=== PATIENT | male | born 1950 | race Caucasian/White ===

== ENCOUNTER 2018-07-03 12:51 | Emergency (ER) | payer MEDICARE, OTHER, SELFPAY ==
[2018-07-03 12:59] VITALS: BP 180/97; PULSE 83; RESP 16; TEMP 37.1; O2SAT 98
--- NOTE | 2018-07-03 14:02 | ED.GENADUL_ITS ---
Discharge Plan Disposition Patient Disposition: HOME Condition: Good Discharge Details Chief Complaint: Epistaxis Clinical Impression: Epistaxis Primary Care Provider: Aden Padilla ED Provider: Darwin Fernandez Home Meds and New Rx's Prescriptions: No Action No Known Home Meds RF: 0 Discharge Instructions Instructions: Nosebleed (ED) Referrals: [facility] Emergency Dept. [Outside] - Return if symptoms worsen Discharge Data Discharge Date/Time-TO BE ENTERED AT DEPARTURE: 07/03/18 14:20 Medical Decision Making Bleeding stopped prior to interview and exam. I did use hurricane spray for comfort during the exam. I could not see source of bleeding. Provide nasal clamp if it starts again. Advised to return if unable stop. Advised to establish PCP. Offered to evaluate LFT with labs today and pt declined and preferred to wait to discuss with a pcp. I am agreeable. Advised to return if worsens. HPI General Mode of arrival: ambulatory . Date/Time Provider Initiated Documentation: 07/03/18 12:59 . Limitations to Documentation: no limitations . Information obtained by: patient . HPI Narrative: 68 y/o male here with c/o nose bleed. Started intermittently two weeks ago. Normally it stops after a couple minutes of applying pressure. Today it would not stop. He does not take ASA or anticoagulants. He does apply ointment to his nostrils for dry skin. He drinks daily and has for years. He works with [employer] by trade and figures he would have problems at some point. Denies any trauma. Believes today the blood started after forceful sneeze. He does not have PCP established yet. He and his have plans to get one by August. No history of nose bleeds until two weeks ago and denies any other bleeding. Related Data Home Medications Medication Instructions Recorded Confirmed Unknown [No Known Home Meds] 07/03/18 07/03/18 Allergies Allergy/AdvReac Type Severity Reaction Status Date / Time No Known Allergies Allergy Unverified 07/03/18 13:06 General Stated Complaint: Epistaxis HODAN: 4 Review of Systems Eyes Reports system reviewed and no additional complaints, except as docu ENT Denies bleeding gums and Reports epistaxis Cardiovascular Reports system reviewed and no additional complaints, except as docu Respiratory Reports system reviewed and no additional complaints, except as docu Gastrointestinal Reports system reviewed and no additional complaints, except as docu Genitourinary Reports system reviewed and no additional complaints, except as [facility] Integumentary/Breasts Reports system reviewed and no additional complaints, except as [facility] Hematologic/Lymphatic Reports system reviewed and no additional complaints, except as [facility] (denies any hepatitis) [facility] Social History Smoking/Tobacco Use Status: Never Exam Const General: cooperative, healthy appearing, comfortable and no acute distress Nutritional Appearance: average body habitus Orientation: alert, awake and oriented x3 HENMT Head: normal to inspection and atraumatic Ears: hearing grossly normal bilaterally and external ears normal General nose exam: external nose normal, nares normal, nasal mucous membranes and turbinates normal, no nasal discharge, epistaxis (left resolved. Dried blood on external nose but nose active bleeding and no fissures or cracks.) and nasal polyp on the left (inner wall) Face and sinus: normal facial exam Mouth: oral mucosae normal Eyes General: appearance normal, both eyes and all related structures Neck Neck: normal visual inspection, full ROM and no lymphadenopathy Resp Effort & Inspection: normal respiratory effort and able to speak in complete sentences Auscultation: clear to auscultation bilaterally Cardio Rate: regular rate Rhythm: regular rhythm Skin General skin exam: no rashes or lesions noted Neuro General: alert, awake, oriented x3 and gait normal Course Vital Signs Temperature 37.1 C 07/03/18 12:59 Pulse 83 07/03/18 12:59 Respiratory Rate 16 07/03/18 12:59 Blood Pressure 180/97 H 07/03/18 12:59 Pulse Oximetry 98 07/03/18 12:59 Temperature 37.1 C 07/03/18 12:59 Temperature Source Skin 07/03/18 12:59 Pulse 83 07/03/18 12:59 Respiratory Rate 16 07/03/18 12:59 Respiratory Effort 07/03/18 13:04 Blood Pressure 180/97 H 07/03/18 12:59 Pulse Oximetry 98 07/03/18 12:59 Oxygen Delivery Method Room Air 07/03/18 12:59 Oxygen Flow Rate 0 07/03/18 12:59
== END 2018-07-03 14:20 | disposition home or self-care (01) ==
PROVIDERS: Emergency Provider Nurse Practitioner Family; PCP Family Medicine
DX: R04.0 Epistaxis (principal)
CPT/HCPCS: 99282

== ENCOUNTER 2018-10-02 17:32 | Outpatient (REF) | payer MEDICARE, OTHER, SELFPAY ==
[2018-10-02 21:59] LABS: ALT 48 U/L (12-78); AST 31 U/L (15-37); Alkaline Phosphatase 93 U/L (46-116); Anion Gap 11.2 mmol/L (3-11); BUN 11 mg/dL (7-18); Bilirubin, Total 0.6 mg/dL (0.2-1.0); CO2 24.8 mmol/L (21.0-32.0); CREATININE 0.87 mg/dL (0.70-1.30); Calcium 9.7 mg/dL (8.5-10.1); Chloride 99 mmol/L (98-107); Cholesterol 262 mg/dL (50-200); Glucose 99 mg/dL (70-100); HDL Cholesterol 45 mg/dL (40-60); LDL CHOLESTEROL 187 mg/dL (<100); Potassium 4.4 mmol/L (3.5-5.1); Sodium 135 mmol/L (136-145); Total Protein 8.1 g/dL (6.4-8.2); Triglyceride 151 mg/dL (30-150)
== END 2018-10-02 17:52 ==
LOC: NCHCN 17:32
PROVIDERS: PCP Family Medicine; Visit Provider Family Medicine
DX: E78.89 Other lipoprotein metabolism disorders (principal); R35.1 Nocturia
CPT/HCPCS: 80053; 80061; 83721

== ENCOUNTER 2018-10-29 12:26 | Outpatient (REF) | payer MEDICARE, OTHER, SELFPAY ==
[2018-10-29 21:43] LABS: Cholesterol 302 mg/dL (50-200); HDL Cholesterol 43 mg/dL (40-60); LDL CHOLESTEROL 190 mg/dL (<100); Triglyceride 278 mg/dL (30-150)
== END 2018-10-29 12:46 ==
LOC: NCHCN 12:26
PROVIDERS: PCP Family Medicine; Visit Provider Internal Medicine
DX: E78.5 Hyperlipidemia, unspecified (principal)
CPT/HCPCS: 80061; 83721

== ENCOUNTER 2021-06-07 18:46 | Outpatient (REF) | payer MEDICARE, OTHER, SELFPAY ==
[2021-06-07 18:44] LABS: ALT 101 U/L (16-63); AST 55 U/L (15-37); Alkaline Phosphatase 92 U/L (46-116); Anion Gap 7.1 mmol/L (3-11); BUN 11 mg/dL (7-18); Bilirubin, Total 0.7 mg/dL (0.2-1.0); CO2 28.9 mmol/L (21.0-32.0); Calculated LDL 182 mg/dL (<100); Chloride 101 mmol/L (98-107); Cholesterol 257 mg/dL (<200); Glucose 103 mg/dL (74-106); HDL Cholesterol 43 mg/dL (40-60); Potassium 4.3 mmol/L (3.5-5.1); Sodium 137 mmol/L (136-145); Total Protein 7.8 g/dL (6.4-8.2); Triglyceride 162 mg/dL (<150)
== END 2021-06-07 18:47 | disposition home or self-care (01) ==
LOC: NCHCN 18:46
PROVIDERS: PCP Family Medicine; Visit Provider Family Medicine
DX: I10 Essential (primary) hypertension (principal); E78.5 Hyperlipidemia, unspecified; Z00.00 Encounter for general adult medical examination without abnormal findings; Z72.89 Other problems related to lifestyle
CPT/HCPCS: 80053; 80061

== ENCOUNTER 2021-08-10 17:43 | Outpatient (REF) | payer MEDICARE, OTHER, SELFPAY ==
[2021-08-10 17:31] LABS: ALT 42 U/L (16-63); AST 32 U/L (15-37); Albumin 4.2 g/dL (3.4-5.0); Alkaline Phosphatase 89 U/L (46-116); Bilirubin, Total 0.7 mg/dL (0.2-1.0); Calculated LDL 164 mg/dL (<100); Cholesterol 242 mg/dL (<200); HDL Cholesterol 47 mg/dL (40-60); Total Protein 7.8 g/dL (6.4-8.2); Triglyceride 155 mg/dL (<150)
[2021-08-10 17:42] LABS: Bilirubin, Direct 0.2 mg/dL (0.0-0.2)
[2021-08-10 18:05] LABS: Hemoglobin A1C 5.8 % (<5.7)
== END 2021-08-10 17:44 | disposition home or self-care (01) ==
LOC: NCHCN 17:43
PROVIDERS: PCP Family Medicine; Visit Provider Family Medicine
DX: E78.5 Hyperlipidemia, unspecified (principal); Z72.89 Other problems related to lifestyle
CPT/HCPCS: 80061; 80076; 83036

== ENCOUNTER 2022-08-14 13:57 | Outpatient (REF) | payer MEDICARE, OTHER, SELFPAY ==
[2022-08-14 16:15] LABS: ALT 34 U/L (16-63); AST 32 U/L (15-37); Albumin 4.1 g/dL (3.4-5.0); Alkaline Phosphatase 87 U/L (46-116); Anion Gap 8.9 mmol/L (3-11); BUN 13 mg/dL (7-18); Bilirubin, Total 0.7 mg/dL (0.2-1.0); CO2 26.1 mmol/L (21.0-32.0); Calcium 9.2 mg/dL (8.5-10.1); Chloride 100 mmol/L (98-107); Estimated GFR 79.97 (mL/min/1.73m2); Glucose 112 mg/dL (74-106); Potassium 4.2 mmol/L (3.5-5.1); Sodium 135 mmol/L (136-145); Total Protein 8.5 g/dL (6.4-8.2)
[2022-08-14 16:23] LABS: Hemoglobin A1C 5.7 % (<5.7)
== END 2022-08-14 13:58 | disposition home or self-care (01) ==
LOC: NCHCN 13:57
PROVIDERS: PCP Family Medicine; Visit Provider Family Medicine
DX: R73.09 Other abnormal glucose (principal); I10 Essential (primary) hypertension; Z13.1 Encounter for screening for diabetes mellitus; Z72.89 Other problems related to lifestyle; E78.5 Hyperlipidemia, unspecified
CPT/HCPCS: 80053; 83036

== ENCOUNTER 2023-08-22 14:27 | Outpatient (REF) | payer MEDICARE, OTHER, SELFPAY ==
[2023-08-22 15:56] LABS: Hemoglobin A1C 5.7 % (<5.7)
[2023-08-22 16:03] LABS: ALT 38 U/L (16-63); AST 27 U/L (15-37); Albumin 3.9 g/dL (3.4-5.0); Alkaline Phosphatase 76 U/L (46-116); Anion Gap 7.6 mmol/L (3-11); BUN 12 mg/dL (7-18); Bilirubin, Total 0.5 mg/dL (0.2-1.0); CO2 26.4 mmol/L (21.0-32.0); Calcium 9.4 mg/dL (8.5-10.1); Calculated LDL 154 mg/dL (<100); Chloride 103 mmol/L (98-107); Cholesterol 242 mg/dL (<200); Estimated GFR 79.47 (mL/min/1.73m2); Glucose 110 mg/dL (74-106); HDL Cholesterol 43 mg/dL (40-60); Potassium 4.2 mmol/L (3.5-5.1); Sodium 137 mmol/L (136-145); Triglyceride 227 mg/dL (<150)
== END 2023-08-22 14:28 | disposition home or self-care (01) ==
LOC: NCHCN 14:27
PROVIDERS: PCP Family Medicine; Visit Provider Family Medicine
DX: R73.03 Prediabetes (principal); E78.5 Hyperlipidemia, unspecified
CPT/HCPCS: 80053; 80061; 83036

== ENCOUNTER 2024-09-04 14:00 | Outpatient (REF) | payer MEDICARE, OTHER, SELFPAY ==
[2024-09-04 14:59] LABS: Absolute Basophil Count 0.04 10^3/uL (0.0-0.2); Absolute Eosinophil Count 0.13 10^3/uL (0.0-0.7); Absolute Lymphocyte Count 1.47 10^3/uL (1.2-3.4); Absolute Monocyte Count 0.52 10^3/uL (0.1-0.8); Absolute Neutrophil Count 2.63 10^3/uL (1.2-6.7); Basophils % 0.8 %; Eosinophils % 2.7 %; HGB 16.1 g/dL (13.5-17.5); Lymphocytes % 30.7 %; MCH 31.8 pg (27.0-33.0); MCHC 33.5 % (32.0-36.0); MCV 95 fL (80-95); Monocytes % 10.9 %; Neutrophils % 54.9 %; Platelet Count 236 10^3/uL (130-400); RBC 5.06 10^6/uL (4.36-5.78); RDW 12.5 % (11.8-14.1); RDW-SD 43.3 fL; WBC 4.79 10^3/uL (4.4-10.8)
[2024-09-04 15:11] LABS: Hemoglobin A1C 5.9 % (<5.7)
[2024-09-04 15:27] LABS: ALT 35 U/L (16-63); AST 35 U/L (15-37); Albumin 4.3 g/dL (3.4-5.0); Alkaline Phosphatase 92 U/L (46-116); Anion Gap 6.3 mmol/L (3-11); BUN 13 mg/dL (7-18); Bilirubin, Total 0.72 mg/dL (0.2-1.0); CO2 27.7 mmol/L (21.0-32.0); Calcium 9.8 mg/dL (8.5-10.1); Calculated LDL 167 mg/dL (<100); Chloride 103 mmol/L (98-107); Cholesterol 262 mg/dL (<200); Estimated GFR 78.98 (mL/min/1.73m2); Glucose 104 mg/dL (74-106); HDL Cholesterol 43 mg/dL (40-60); Potassium 3.9 mmol/L (3.5-5.1); Sodium 137 mmol/L (136-145); Total Protein 8.6 g/dL (6.4-8.2); Triglyceride 260 mg/dL (<150)
== END 2024-09-04 14:01 | disposition home or self-care (01) ==
LOC: NCHCN 14:00
PROVIDERS: PCP Family Medicine; Visit Provider Family Medicine
DX: E78.5 Hyperlipidemia, unspecified (principal); R73.03 Prediabetes
CPT/HCPCS: 80053; 80061; 83036; 85025